=== PATIENT | female | born 1945 | race Caucasian/White ===

== ENCOUNTER 2025-03-01 16:32 | Emergency (ER) | payer MEDICARE, OTHER ==
[~2025-03-01] VITALS: Ht 160 cm; Wt 39.0 kg
[2025-03-01] MEDS ORDERED: TDAP [DIPH/PERTUSSIS/TET] 0.5 ML VIAL IM ONE (17:10)
[2025-03-01] MEDS: TDAP [DIPH/PERTUSSIS/TET] 0.5 ML VIAL IM ONE (17:16)
[2025-03-01] MEDS ORDERED: LIDOCAINE HCL/MPF 1% 30 ML VIAL IJ ONE (17:20)
[2025-03-01] MEDS: LIDOCAINE /MPF 1% VIAL 5 ML VIAL IJ ONE (17:46)
[2025-03-01 20:04] VITALS: BP 138/82; TEMP 98.2; O2SAT 96
== END 2025-03-01 20:22 ==
LOC: ER 16:43
DX: S01.81XA Laceration without foreign body of other part of head, initial encounter (principal); F02.80 Dementia in other diseases classified elsewhere, unspecified severity, without behavioral disturbance, psychotic disturbance, mood disturbance, and anxiety; G20.A1 Parkinson's disease without dyskinesia, without mention of fluctuations; E78.5 Hyperlipidemia, unspecified; G93.89 Other specified disorders of brain; I11.9 Hypertensive heart disease without heart failure; Z88.2 Allergy status to sulfonamides; Z87.01 Personal history of pneumonia (recurrent); W22.03XA Walked into furniture, initial encounter; Y93.89 Activity, other specified; Y92.89 Other specified places as the place of occurrence of the external cause; Y99.8 Other external cause status
CPT/HCPCS: 12013; 70450; 72125; 90471; 90715; 99285; A6403; J3490